=== PATIENT | male | born 2000 | race Caucasian/White ===

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

== ENCOUNTER 2021-03-09 20:09 | Emergency (ER) | payer SELFPAY ==
[~2021-03-09] VITALS: Ht 185.4 cm; Wt 113.4 kg
[2021-03-09 20:21] VITALS: BP 146/78
[2021-03-09 21:45] LABS: APPEARANCE,URINE CLEAR (CLEAR); BILIRUBIN,URINE NEGATIVE (NEGATIVE); BLOOD, URINE 3+ (NEGATIVE); COLOR,URINE YELLOW (YELLOW); LEUKOCYTE ESTERASE ,URINE TRACE (NEGATIVE); NITRITE, URINE NEGATIVE (NEGATIVE); UGLUCOSE NEGATIVE (NEGATIVE)
[2021-03-09 21:57] LABS: WBC,URINE TOO MANY TO COUNT /HPF (0-5)
[2021-03-09] MEDS ORDERED: CEPH-588 PO (23:09)
[2021-03-09] MEDS ORDERED: PHEN-1877 PO (23:10)
[2021-03-09 23:18] VITALS: BP 147/94
== END 2021-03-09 23:18 | disposition home or self-care (01) ==
LOC: MED 20:09
DX: N39.0 Urinary tract infection, site not specified (principal); Z79.899 Other long term (current) drug therapy
CPT/HCPCS: 36415; 81001; 87086; 87491; 99283